=== PATIENT | female | born 1995 | race Two or more races ===

== ENCOUNTER 2016-06-17 23:54 | Emergency (ER) | payer SELFPAY ==
[~2016-06-17] VITALS: Ht 152.4 cm; Wt 68.0 kg
[~2016-06-17 23:54] MED LIST: ATIVAN1 MG ORAL; MACROBID100 MG ORAL; NKM; PHENAZOPYRIDIN200 MG ORAL
[2016-06-18 00:09] VITALS: BP 123/69
[2016-06-18] MEDS ORDERED: LORazepam Inj 2mg/ml 1ml IV ONE (00:30)
--- NOTE | 2016-06-18 00:31 | Emergency Room Report ---
History of Present Illness General Chief Complaint: General Complaint Source: Patient Present Illness HPI This is a 20-year-old female with history of eczema and anxiety. She presents with chief complaint of palpitation for the last few days. On and off. Closter short of breath with it. Denies any fever chills denies any nausea vomiting. A little anxious but not severe. No suicidal thought homicidal thought. Not in any medication. Not Toprol. No family history of PE or DVT. Allergies: Coded Allergies: No Known Allergies (Unverified , 06/17/16) Patient History Past Medical History: see triage record, old chart reviewed Past Surgical History: none Pertinent Family History: none Social History: Denies: smoking Last Menstrual Period: 05/31/16 Now: No : 0 Para: 0 Immunizations: other Reviewed Nursing Documentation: PMH: Agreed, PSxH: Agreed Nursing Documentation-PMH Past Medical History: No Stated History Review of Systems Eye: Denies: blurred vision, eye pain ENT: Denies: ear pain, nose congestion, throat swelling Respiratory: Denies: cough, shortness of breath Cardiovascular: Reports: palpitations, Denies: chest pain Gastrointestinal: Denies: abdominal pain, diarrhea, nausea, vomiting Musculoskeletal: Denies: back pain, joint pain Skin: Denies: rash Neurological: Denies: headache, numbness Endocrine: Denies: increased thirst, increased urine Hematologic/Lymphatic: Denies: easy bruising All Other Systems: negative except mentioned in HPI Physical Exam Vital Signs Date Time Temp Pulse Resp B/P Pulse Ox O2 Delivery O2 Flow Rate FiO2 06/17/16 23:55 98.2 99 16 120/81 100 Room Air vitals normal Sp02 EP Interpretation: reviewed, normal General Appearance: well appearing, no apparent distress, alert Head: normocephalic, atraumatic Eyes: bilateral eye EOMI, bilateral eye PERRL ENT: hearing grossly normal, normal pharynx Neck: full range of motion, supple, no meningismus Respiratory: chest non-tender, lungs clear, normal breath sounds Cardiovascular #1: regular rate, rhythm, no murmur Gastrointestinal: normal bowel sounds, non tender, no mass, no organomegaly, no bruit, non-distended Musculoskeletal: back normal, gait/station normal, normal range of motion Psychiatric: mood/affect normal Skin: warm/dry Medical Decision Making Diagnostic Impression: Primary Impression: Anxiety Additional Impressions: Palpitations UTI (urinary tract infection) Qualified Codes: N30.00 - Acute cystitis without hematuria ER Course Patient presents with palpitations. Most likely anxiety. He felt better after Ativan. She does have a urinary tract infection. We'll go ahead and treat. Notice of ACS, PE, dissection to name a few. Lab Results Impression labs unremarkable EKG Diagnostic Results Rate: normal Rhythm: NSR ST Segments: no acute changes Rhythm Strip Diag. Results EP Interpretation: yes Rate: 98 Rhythm: NSR, no PVC's, no ectopy Last Vital Signs Date Time Temp Pulse Resp B/P Pulse Ox O2 Delivery O2 Flow Rate FiO2 06/18/16 00:09 98.1 97 21 123/69 100 Room Air Status: improved Disposition: HOME, SELF-CARE Condition: Stable Scripts Cephalexin* (KEFLEX*) 500 Mg Capsule 500 MG ORAL TID, #21 CAP 0 Refills Prov: [place] ADAMES M.D. 06/18/16 Buspirone Hcl* (BUSPAR*) 10 Mg Tablet 10 MG ORAL THREE TIMES A DAY, #15 TAB 0 Refills Prov: [place] ADAMES M.D. 06/18/16 Additional Instructions: Followup your Dr. in 7 days. You may need a referral to see a fire sprinkler service technician for Holter monitor. Return if symptom worsen. [place] ADAMES M.D. Jun 18, 2016 00:31
[2016-06-18 01:13] LABS: BASOPHILS % (AUTO) 0.9 % (0.0-2.0); EOSINOPHILS % (AUTO) 3.5 % (0.0-3.0); LYMPHOCYTES % (AUTO) 25.7 % (20.0-45.0); MEAN CORPUSCULAR HEMOGLOBIN 27.4 PG (27.0-31.0); MEAN CORPUSCULAR HGB CONC 33.2 G/DL (32.0-36.0); MEAN CORPUSCULAR VOLUME 83 FL (80-99); MEAN PLATELET VOLUME 6.3 FL (6.5-10.1); MONOCYTES % (AUTO) 9.1 % (1.0-10.0); NEUTROPHILS % (AUTO) 60.7 % (45.0-75.0); PLATELET COUNT 345 K/UL (150-450); RED BLOOD COUNT 4.97 M/UL (4.20-5.40); RED CELL DISTRIBUTION WIDTH 14.3 % (11.6-14.8); WHITE BLOOD COUNT 13.9 K/UL (4.8-10.8)
[2016-06-18 01:14] LABS: APPEARANCE,URINE SLIGHTLY CLOUDY; KETONES,URINE NEGATIVE (NEGATIVE); LEUKOCYTE ESTERASE ,URINE 2+ (NEGATIVE); NITRITE,URINE NEGATIVE (NEGATIVE); PH,URINE 6.5 (4.5-8.0); PROTEIN,URINE NEGATIVE (NEGATIVE); UROBILINOGEN,URINE NORMAL MG/DL (0.0-1.0)
[2016-06-18 01:26] LABS: BACTERIA,URINE MODERATE /HPF; RBC,URINE 0-2 /HPF (0 - 2); SQUAMOUS EPITHELIAL CELL,UR FEW /LPF (NONE/OCC); WBC,URINE 20-30 /HPF (0 - 2)
[2016-06-18 01:32] LABS: ANION GAP 11 (5-15); CALCIUM 9.2 mg/dL (8.6-10.2); CARBON DIOXIDE 27 mEQ/L (20-30); CHLORIDE 101 mEQ/L (98-107); CREATININE 0.6 mg/dL (0.5-0.9); GLOMERULAR FILTRATION RATE > 60 mL/min (>60); HEMOLYSIS 2; SODIUM 139 mEQ/L (135-145)
[2016-06-18] MEDS ORDERED: KEFLEX500 MG ORAL (01:45)
[2016-06-18] MEDS ORDERED: BUSPAR10 MG ORAL (01:45)
[2016-06-18 02:08] VITALS: BP 112/71
--- NOTE | 2016-06-20 08:31 | Cardiology Report ---
APPROVED REPORT EKG Measurement Heart [id number] ID [id number] Sinus rhythm with marked sinus arrhythmia Otherwise normal ECG
== END 2016-06-18 02:15 | disposition home or self-care (01) ==
LOC: EMR 06-18 02:15
DX: F41.9 Anxiety disorder, unspecified (principal); N30.00 Acute cystitis without hematuria
CPT/HCPCS: 36415; 80048; 81001; 81025; 85025; 87086; 87181; 93005; 96374; 96375; 99284; J0696

== ENCOUNTER 2017-07-19 00:31 | Emergency (ER) | payer SELFPAY ==
[~2017-07-19] VITALS: Ht 152.4 cm; Wt 70.3 kg
[~2017-07-19 00:31] MED LIST changes: +BUSPAR10 MG ORAL; +KEFLEX500 MG ORAL
[2017-07-19 01:51] LABS: APPEARANCE,URINE CLEAR; BILIRUBIN, URINE NEGATIVE (NEGATIVE); COLOR,URINE PALE YELLOW; GLUCOSE, URINE (UA) NEGATIVE (NEGATIVE); KETONES,URINE NEGATIVE (NEGATIVE); LEUKOCYTE ESTERASE ,URINE NEGATIVE (NEGATIVE); NITRITE,URINE NEGATIVE (NEGATIVE); PH,URINE 7 (4.5-8.0); PROTEIN,URINE NEGATIVE (NEGATIVE); UROBILINOGEN,URINE NORMAL MG/DL (0.0-1.0)
[2017-07-19 02:30] VITALS: BP 118/75
[2017-07-19] MEDS ORDERED: IBUPROFEN600 MG ORAL (03:13)
[2017-07-19 03:20] VITALS: BP 109/75
--- NOTE | 2017-07-19 04:37 | Emergency Room Report ---
History of Present Illness General Chief Complaint: Chest Pain Source: Patient Present Illness HPI This is a 21-year-old female presented after increased cough and nasal congestion. The patient having intermittent episodes when she had increased chest discomfort. This was described as sharp in nature. It was associated with a nonproductive cough. The patient reported having increased nasal congestion a moderate sore throat. She denied current fever. She denied vomiting or being . Allergies: Coded Allergies: No Known Allergies (Unverified , 06/17/16) Patient History Past Medical History: see triage record Last Menstrual Period: 07/11/17 Now: No : 0 Para: 0 Reviewed Nursing Documentation: PMH: Agreed, PSxH: Agreed Nursing Documentation-PMH Past Medical History: No Stated History Review of Systems All Other Systems: negative except mentioned in HPI Physical Exam Vital Signs Date Time Temp Pulse Resp B/P (MAP) Pulse Ox O2 Delivery O2 Flow Rate FiO2 07/19/17 00:40 97.7 110 16 127/77 97 Room Air Sp02 EP Interpretation: reviewed, normal General Appearance: normal inspection, well appearing, no apparent distress, alert, GCS 15 Head: atraumatic ENT: normal ENT inspection, hearing grossly normal, normal voice Neck: normal inspection, full range of motion, supple, no bony tend Respiratory: normal inspection, lungs clear, normal breath sounds, no respiratory distress, no retraction, no wheezing Cardiovascular #1: regular rate, rhythm, no edema Gastrointestinal: normal inspection, normal bowel sounds, non tender, soft, no guarding, no hernia Genitourinary: no CVA tenderness Musculoskeletal: normal inspection, back normal, normal range of motion Neurologic: normal inspection, alert, responsive, speech normal Psychiatric: normal inspection, judgement/insight normal, mood/affect normal Skin: normal inspection, normal color, no rash Medical Decision Making Diagnostic Impression: Primary Impression: Viral respiratory infection ER Course Patient presented for cough and chest discomfort. Differential diagnosis included but was not limited to bronchitis, pneumonia, pulmonary embolism, pericarditis, asthma, foreign body. Patient has a benign exam and does not appear to require any further imaging or laboratory testing at this time. A urine test was negative. Patient was given ibuprofen with improvement in the pain. The patient's pain appears related to a viral respiratory infection. She does not appear to have any evidence of pneumonia. She has no known risk factor for pulmonary embolism . The patient is advised to follow up with primary care doctor in 1-2 days. Patient is advised to return if any worsening condition or if any changes in status that are concerning. This report is dictated with [employer] train inspector software which may occasionally lead to discrepancies related to use of this software. Labs Test 07/19/17 01:38 Urine Color Pale yellow Urine Appearance Clear Urine pH 7 (4.5-8.0) Urine Specific Buckner 1.015 (1.005-1.035) Urine Protein Negative (NEGATIVE) Urine Glucose (UA) Negative (NEGATIVE) Urine Ketones Negative (NEGATIVE) Urine Occult Blood 1+ (NEGATIVE) Urine Nitrite Negative (NEGATIVE) Urine Bilirubin Negative (NEGATIVE) Urine Urobilinogen Normal MG/DL (0.0-1.0) Urine Leukocyte Esterase Negative (NEGATIVE) Urine RBC 2-4 /HPF (0 - 2) Urine WBC 0 /HPF (0 - 2) Urine Squamous Epithelial Cells Few /LPF (NONE/OCC) Urine Bacteria None /HPF (NONE) Urine HCG, Qualitative Negative Last Vital Signs Date Time Temp Pulse Resp B/P (MAP) Pulse Ox O2 Delivery O2 Flow Rate FiO2 07/19/17 03:20 89 14 109/75 99 Room Air 07/19/17 02:30 97.7 Status: improved Disposition: HOME, SELF-CARE Condition: Stable Scripts Ibuprofen* (MOTRIN*) 600 Mg Tablet 600 MG ORAL Q8H Y for For Pain, #30 TAB 0 Refills Prov: Kar Peace 07/19/17 Patient Instructions: Nonspecific Chest Pain Kar Peace Jul 19, 2017 04:37
--- NOTE | 2017-07-19 14:17 | Diagnostic Imaging Report ---
Indication: Dyspnea Comparison: None A single view chest radiograph was obtained. Findings: Cardiomediastinal appearance is within normal limits for age. Pulmonary vascularity is appropriate. The diaphragmatic contour is smooth and costophrenic angles are sharp. No pleural effusions are identified. The bones are unremarkable. Impression: No acute findings
--- NOTE | 2017-07-21 16:52 | Cardiology Report ---
APPROVED REPORT EKG Measurement Heart [id number] Normal sinus rhythm Normal ECG
== END 2017-07-19 03:26 | disposition home or self-care (01) ==
LOC: EMR 01:01
DX: J98.8 Other specified respiratory disorders (principal); B34.9 Viral infection, unspecified
CPT/HCPCS: 71045; 81003; 81025; 93005; 99283

== ENCOUNTER 2018-09-08 11:19 | Emergency (ER) | payer SELFPAY ==
[~2018-09-08] VITALS: Ht 149.9 cm; Wt 77.1 kg
[~2018-09-08 11:19] MED LIST changes: +BACTRIM DS TAB1 EAC1 ORAL; +IBUPROFEN600 MG ORAL; +PHENAZOPYRIDIN100 MG ORAL
[2018-09-08 11:22] VITALS: BP 123/66
--- NOTE | 2018-09-08 11:48 | NUR ---
ED Nurse Note: PT. AAOX4. AMBULATORY. CAME IN TO ER DUE TO BACK PAIN. PT. WAS RECENTLY SEEN IN ER FOR UTI BUT THE BACK PAIN GOT WORSE. HAS NOT FINISHED THE FULL COARSE OF ATB
[2018-09-08 12:24] LABS: APPEARANCE,URINE CLEAR; BILIRUBIN, URINE NEGATIVE (NEGATIVE); COLOR,URINE PALE YELLOW; GLUCOSE, URINE (UA) NEGATIVE (NEGATIVE); KETONES,URINE NEGATIVE (NEGATIVE); LEUKOCYTE ESTERASE ,URINE NEGATIVE (NEGATIVE); NITRITE,URINE NEGATIVE (NEGATIVE); PH,URINE 6 (4.5-8.0); PROTEIN,URINE NEGATIVE (NEGATIVE); UROBILINOGEN,URINE NORMAL MG/DL (0.0-1.0)
--- NOTE | 2018-09-08 12:36 | Emergency Room Report ---
History of Present Illness General Chief Complaint: Back Pain-No Injury Source: Patient Present Illness HPI This patient states that she was seen one week ago for back pain and dysuria. She was told she had a urinary tract infection. She states she took a course of antibiotics and the dysuria has resolved but she continues to have back pain. She describes the pain in her low back. She states the pain is worse with movement. She states when she is at work it is worse that she currently has to walk around and lift things. She denies weakness. She denies tingling or numbness. She denies trauma. She denies fever or chills. She denies nausea or vomiting. She denies abnormal vaginal discharge. She denies vaginal bleeding. She has no other complaints. Allergies: Coded Allergies: No Known Allergies (Unverified , 06/17/16) Patient History Past Medical History: none, see triage record, other - Fatty liver Social History: Denies: smoking, alcohol use, drug use Last Menstrual Period: 07/31/18 Reviewed Nursing Documentation: PMH: Agreed; PSxH: Agreed Nursing Documentation-PMH Past Medical History: No Stated History Review of Systems All Other Systems: negative except mentioned in HPI Physical Exam Vital Signs Date Time Temp Pulse Resp B/P (MAP) Pulse Ox O2 Delivery O2 Flow Rate FiO2 09/08/18 11:22 97.9 99 19 123/66 97 Room Air Sp02 EP Interpretation: reviewed, normal General Appearance: no apparent distress, alert, GCS 15, non-toxic Head: normocephalic, atraumatic Eyes: bilateral eye normal inspection, bilateral eye PERRL ENT: hearing grossly normal, normal pharynx, no angioedema, normal voice Neck: full range of motion, supple/symm/no masses Respiratory: chest non-tender, lungs clear, normal breath sounds, no respiratory distress, no retraction, no accessory muscle use, speaking full sentences Cardiovascular #1: regular rate, rhythm, no edema Gastrointestinal: normal bowel sounds, non tender, soft, non-distended, no guarding, no rebound Rectal: deferred Musculoskeletal: gait/station normal, normal range of motion, tender - TTP over the paraspinal m of the lumbar spine. Neurologic: alert, oriented x3, responsive, motor strength/tone normal, sensory intact, speech normal Psychiatric: judgement/insight normal, memory normal, mood/affect normal, no suicidal/homicidal ideation Skin: normal color, no rash, warm/dry, well hydrated Medical Decision Making Diagnostic Impression: Primary Impression: Back pain Additional Impressions: Muscle spasm Transaminitis ER Course This patient has a clinical presentation consistent with mechanical back pain. There are no red flags on physical exam. The patient denies any concerning features such as trauma, fevers, night sweats, history of malignancy, pain worse at night, IV drug abuse, urinary/fecal incontinence or retention, focal weakness or change in sensation, or refractory pain. Given these pertinent negatives in the history and physical exam an emergent cause of the back pain such as epidural abscess, metastasis to bone, cauda equina syndrome, and fracture is less likely. I also doubt emergent cardiovascular cause of back pain such as aortic dissection a ruptured abdominal aortic aneurysm given patient with equal pulses in all 4 extremities with no diastolic murmur or pulsatile abdominal mass. I did obtain basic lab work to include CBC, CMP and urinalysis. These were overall noncontributory. The patient does have a transaminitis. This appears to be chronic for this patient. She was told she has fatty liver. However, I educated the patient that she should follow up with her primary care physician for further evaluation for possible underlying hepatitis. The patient indicated understanding and intention to do so. The patient was counseled that, though unlikely, the possibility of an emergent cause of back pain may still be present and that the patient should return immediately if symptoms persist or worsen. The symptoms are reproducible with movement. Patient had a benign evaluation and neurologic examination. No emergency etiology was identified. Laboratory Tests Test 09/08/18 11:44 09/08/18 12:25 Urine Color Pale yellow Urine Appearance Clear Urine pH 6 (4.5-8.0) Urine Specific [place] 1.015 (1.005-1.035) Urine Protein Negative (NEGATIVE) Urine Glucose (UA) Negative (NEGATIVE) Urine Ketones Negative (NEGATIVE) Urine Blood Negative (NEGATIVE) Urine Nitrite Negative (NEGATIVE) Urine Bilirubin Negative (NEGATIVE) Urine Urobilinogen Normal MG/DL (0.0-1.0) Urine Leukocyte Esterase Negative (NEGATIVE) Urine HCG, Qualitative Negative (NEGATIVE) White Blood Count 10.6 K/UL (4.8-10.8) Red Blood Count 5.01 M/UL (4.20-5.40) Hemoglobin 13.2 G/DL (12.0-16.0) Hematocrit 40.8 % (37.0-47.0) Mean Corpuscular Volume 81 FL (80-99) Mean Corpuscular Hemoglobin 26.5 PG (27.0-31.0) L Mean Corpuscular Hemoglobin Concent 32.5 G/DL (32.0-36.0) Red Cell Distribution Width 14.5 % (11.6-14.8) Platelet Count 328 K/UL (150-450) Mean Platelet Volume 6.2 FL (6.5-10.1) L Neutrophils (%) (Auto) 57.3 % (45.0-75.0) Lymphocytes (%) (Auto) 31.4 % (20.0-45.0) Monocytes (%) (Auto) 8.1 % (1.0-10.0) Eosinophils (%) (Auto) 2.4 % (0.0-3.0) Basophils (%) (Auto) 0.8 % (0.0-2.0) Sodium Level 140 MMOL/L (136-145) Potassium Level 3.5 MMOL/L (3.5-5.1) Chloride Level 103 MMOL/L (98-107) Carbon Dioxide Level 25 MMOL/L (21-32) Anion Gap 12 mmol/L (5-15) Blood Urea Nitrogen 8 mg/dL (7-18) Creatinine 0.7 MG/DL (0.55-1.30) Estimate Glomerular Filtration Rate > 60 mL/min (>60) Glucose Level 127 MG/DL (74-106) H Calcium Level 9.0 MG/DL (8.5-10.1) Total Bilirubin 0.2 MG/DL (0.2-1.0) Aspartate Amino Transferase (AST) 95 U/L (15-37) H Alanine Aminotransferase (ALT) 177 U/L (12-78) H Alkaline Phosphatase 114 U/L (46-116) Total Protein 8.5 G/DL (6.4-8.2) H Albumin 3.4 G/DL (3.4-5.0) Globulin 5.1 g/dL Albumin/Globulin Ratio 0.7 (1.0-2.7) L Last Vital Signs Date Time Temp Pulse Resp B/P (MAP) Pulse Ox O2 Delivery O2 Flow Rate FiO2 09/08/18 11:22 97.9 99 19 123/66 97 Room Air Status: improved Disposition: HOME, SELF-CARE Condition: Improved Patient Instructions: Back Pain, Adult Lily Chapin DO Sep 08, 2018 12:36
[2018-09-08 12:44] LABS: BASOPHILS % (AUTO) 0.8 % (0.0-2.0); EOSINOPHILS % (AUTO) 2.4 % (0.0-3.0); HEMATOCRIT 40.8 % (37.0-47.0); HEMOGLOBIN 13.2 G/DL (12.0-16.0); LYMPHOCYTES % (AUTO) 31.4 % (20.0-45.0); MEAN CORPUSCULAR VOLUME 81 FL (80-99); MONOCYTES % (AUTO) 8.1 % (1.0-10.0); NEUTROPHILS % (AUTO) 57.3 % (45.0-75.0); PLATELET COUNT 328 K/UL (150-450); RED BLOOD COUNT 5.01 M/UL (4.20-5.40); RED CELL DISTRIBUTION WIDTH 14.5 % (11.6-14.8); WHITE BLOOD COUNT 10.6 K/UL (4.8-10.8)
[2018-09-08 12:56] LABS: ANION GAP 12 mmol/L (5-15); BLOOD UREA NITROGEN 8 mg/dL (7-18); CARBON DIOXIDE 25 MMOL/L (21-32); CHLORIDE 103 MMOL/L (98-107); CREATININE 0.7 MG/DL (0.55-1.30); POTASSIUM 3.5 MMOL/L (3.5-5.1); SODIUM 140 MMOL/L (136-145)
[2018-09-08 13:01] LABS: ALANINE AMINOTRANSFERASE 177 U/L (12-78); ALBUMIN 3.4 G/DL (3.4-5.0); ALBUMIN/GLOBULIN RATIO 0.7 (1.0-2.7); ALKALINE PHOSPHATASE 114 U/L (46-116); ASPARTATE AMINO TRANSFERASE 95 U/L (15-37); BILIRUBIN,TOTAL 0.2 MG/DL (0.2-1.0)
[2018-09-08] MEDS ORDERED: Ketorolac 60mg Inj IM ONE ×2 (13:30→13:34)
[2018-09-08] MEDS ORDERED: Cyclobenzaprine 10mg Tab ORAL ONE (13:30)
[2018-09-08] MEDS ORDERED: Cyclobenzaprine 10mg Tab ONE (13:35)
[2018-09-08] MEDS ORDERED: IBUPROFEN800 MG ORAL (13:52)
[2018-09-08] MEDS ORDERED: ACETAMINOPHEN-1 EAC1 ORAL (13:52)
[2018-09-08] MEDS ORDERED: CYCLOBENZAPRINE10 MG ORAL (13:52)
[2018-09-08 13:58] VITALS: BP 123/66
--- NOTE | 2018-09-08 14:02 | NUR ---
ER DISCHARGE NOTE: Patient is cleared to be discharged per ERMD, pt is aox4, on room air, with stable vital signs. pt was given dc and prescription instructions, pt was able to verbalize understanding, pt is able to ambulate with steady gait. pt took all belongings.
== END 2018-09-08 14:02 | disposition home or self-care (01) ==
LOC: EMR 12:35
DX: M54.5 Low back pain (principal); M62.838 Other muscle spasm; R74.0 Nonspecific elevation of levels of transaminase and lactic acid dehydrogenase [LDH]
CPT/HCPCS: 36415; 80053; 81003; 81025; 85025; 96372; 99283

== ENCOUNTER 2020-04-19 18:50 | Inpatient (IN) | payer MEDICAID ==
[~2020-04-19] VITALS: Ht 152.4 cm; Wt 77.1 kg
[~2020-04-19 18:50] MED LIST changes: +ACETAMINOPHEN-1 EAC1 ORAL; +CYCLOBENZAPRINE10 MG ORAL; +IBUPROFEN800 MG ORAL
[2020-04-19 19:02] VITALS: BP 123/79
--- NOTE | 2020-04-19 19:16 | Emergency Room Report ---
History of Present Illness General Chief Complaint: Female Urogenital Problems Source: Patient (Arielle Stephenson) Present Illness HPI 24 YO female presents to the ED c/o 5/10 in severity Left flank pain x 5 days. Pt. denies strenuous activities. She denies dysuria, urinary frequency or urgency. Patient denies hematuria. She denies history of renal calculi. Patient reports she has had pain similar to this in the past which usually resolves on its own after day or so. Patient reports she has pain at rest when sitting in the car. Patient denies trauma or fall. She denies rash. Patient reports that she has not had a menstrual cycle in 5 months and is not sure if she is or not. She denies fevers and chills. She denies nausea vomiting. She denies vaginal discharge or pelvic pain. No other aggravating or relieving factors at this time. (Arielle Stephenson) Allergies: Coded Allergies: No Known Allergies (Unverified , 06/17/16) COVID-19 Screening Contact w/high risk pt: No Experienced COVID-19 symptoms?: No COVID-19 Testing performed PRICING ASSOCIATE: No (Arielle Stephenson) Patient History Past Medical History: see triage record Past Surgical History: none Pertinent Family History: none Now: No Reviewed Nursing Documentation: PMH: Agreed; PSxH: Agreed (Arielle Stephenson) Nursing Documentation-PMH Past Medical History: No Stated History (Arielle Stephenson) Review of Systems All Other Systems: negative except mentioned in HPI (Arielle Stephenson) Physical Exam Vital Signs Date Time Temp Pulse Resp B/P (MAP) Pulse Ox O2 Delivery O2 Flow Rate FiO2 04/19/20 18:52 98.2 99 18 123/79 (94) 100 (Arielle Stephenson) Sp02 EP Interpretation: reviewed, normal General Appearance: no apparent distress, alert, GCS 15, non-toxic Head: normocephalic, atraumatic Eyes: bilateral eye normal inspection, bilateral eye PERRL ENT: hearing grossly normal, normal pharynx, no angioedema, normal voice Neck: full range of motion, supple/symm/no masses Respiratory: chest non-tender, lungs clear, normal breath sounds, no respiratory distress, no retraction, no accessory muscle use, speaking full sentences Cardiovascular #1: regular rate, rhythm, no edema Gastrointestinal: normal bowel sounds, non tender, soft, non-distended, no guarding, no rebound Rectal: deferred Genitourinary: normal inspection, CVA tenderness (L) Musculoskeletal: back normal, normal range of motion, gait/station normal, non- tender Neurologic: alert, motor strength/tone normal, oriented x3, sensory intact, responsive, speech normal Psychiatric: judgement/insight normal, memory normal, mood/affect normal, no suicidal/homicidal ideation Skin: normal color (Lily Chapin DO) Medical Decision Making PA Attestation Dr. Chapin Is my supervising Physician whom patient management has been discussed with. (Arielle Stephenson) Diagnostic Impression: Primary Impression: Pyelonephritis Additional Impression: Transaminitis ER Course 24 YO female presents to the ED c/o 10/24 in severity Left flank pain x 5 days. Pt. denies strenuous activities. She denies dysuria, urinary frequency or urgency. Patient denies hematuria. She denies history of renal calculi. Patient reports she has had pain similar to this in the past which usually reso lves on its own after day or so. Patient reports she has pain at rest when sitting in the car. Patient denies trauma or fall. She denies rash. Patient reports that she has not had a menstrual cycle in 5 months and is not sure if she is or not. She denies fevers and chills. She denies nausea vomiting. She denies vaginal discharge or pelvic pain. No other aggravating or relieving factors at this time. Ddx considered but are not limited to Diverticulitis, acute appendicitis, diarrhea,UC, PUD, GE, pancreatitis, gallstone, kidney stone, pyelonephritis, UTI, obstruction. Vital signs: are WNL, pt. is afebrile H&PE are most consistent with [ ] ORDERS: -CBC, CMP, lipase, - UA -Urine Hcg: - CT abdomen and pelvis no contrast: ED INTERVENTIONS: -- DISCHARGE: At this time pt. is stable for d/c to home. Will provide printed patient care instructions, and any necessary prescriptions. Care plan and follow up instructions have been discussed with the patient prior to discharge. Labs Test 04/19/20 18:55 04/20/20 09:55 Urine Color Pale yellow Urine Appearance Clear Urine pH 8 (4.5-8.0) Urine Specific [place] 1.010 (1.005-1.035) Urine Protein 2+ (NEGATIVE) Urine Glucose (UA) Negative (NEGATIVE) Urine Ketones Negative (NEGATIVE) Urine Blood 3+ (NEGATIVE) Urine Nitrite Negative (NEGATIVE) Urine Bilirubin Negative (NEGATIVE) Urine Urobilinogen Normal MG/DL (0.0-1.0) Urine Leukocyte Esterase 3+ (NEGATIVE) Urine RBC 10-15 /HPF (0 - 2) Urine WBC 40-60 /HPF (0 - 2) Urine Squamous Epithelial Cells Moderate /LPF (NONE/OCC) Urine Bacteria Moderate /HPF (NONE) Urine HCG, Qualitative Negative (NEGATIVE) White Blood Count 11.0 K/UL (4.8-10.8) Red Blood Count 4.63 M/UL (4.20-5.40) Hemoglobin 12.4 G/DL (12.0-16.0) Hematocrit 39.9 % (37.0-47.0) Mean Corpuscular Volume 86 FL (80-99) Mean Corpuscular Hemoglobin 26.7 PG (27.0-31.0) Mean Corpuscular Hemoglobin Concent 31.0 G/DL (32.0-36.0) Red Cell Distribution Width 14.9 % (11.6-14.8) Platelet Count 311 K/UL (150-450) Mean Platelet Volume 6.6 FL (6.5-10.1) Neutrophils (%) (Auto) 55.9 % (45.0-75.0) Lymphocytes (%) (Auto) 31.5 % (20.0-45.0) Monocytes (%) (Auto) 10.4 % (1.0-10.0) Eosinophils (%) (Auto) 1.6 % (0.0-3.0) Basophils (%) (Auto) 0.6 % (0.0-2.0) Sodium Level 140 MMOL/L (136-145) Potassium Level 3.8 MMOL/L (3.5-5.1) Chloride Level 106 MMOL/L (98-107) Carbon Dioxide Level 29 MMOL/L (21-32) Anion Gap 5 mmol/L (5-15) Blood Urea Nitrogen 8 mg/dL (7-18) Creatinine 0.8 MG/DL (0.55-1.30) Estimat Glomerular Filtration Rate > 60 mL/min (>60) Glucose Level 100 MG/DL (74-106) Hemoglobin A1c 5.9 % (4.3-6.0) Uric Acid 4.0 MG/DL (2.6-7.2) Calcium Level 8.2 MG/DL (8.5-10.1) Phosphorus Level 2.8 MG/DL (2.5-4.9) Magnesium Level 2.1 MG/DL (1.8-2.4) Total Bilirubin 0.3 MG/DL (0.2-1.0) Gamma Glutamyl Transpeptidase 61 U/L (5-85) Aspartate Amino Transf (AST/SGOT) 48 U/L (15-37) Alanine Aminotransferase (ALT/SGPT) 115 U/L (12-78) Alkaline Phosphatase 115 U/L (46-116) Total Protein 8.0 G/DL (6.4-8.2) Albumin 3.1 G/DL (3.4-5.0) Globulin 4.9 g/dL Albumin/Globulin Ratio 0.6 (1.0-2.7) (Arielle Stephenson) ER Course This patient has pyelonephritis. The patient's primary symptoms were in her left flank. Given the physical exam, I felt that this patient should undergo CT of the abdomen pelvis to rule out an infected obstructed stone. CT of the abdomen pelvis did show a stone in the left ureter showing mild obstruction. Overall, the patient was well-appearing and nontoxic. The patient was given IV Zosyn, Uroxatrol, IV fluids and admitted for further evaluation and treatment. Given the early mild obstruction, this patient is at risk for urosepsis and rapid deterioration. The patient is admitted for further evaluation and treatment and further monitoring of her urolithiasis for concern of full obstruction and deterioration. She is admitted for further evaluation and treatment. Laboratory Tests Test 04/19/20 18:55 04/19/20 19:28 Urine Color Pale yellow Urine Appearance Clear Urine pH 8 (4.5-8.0) Urine Specific [place] 1.010 (1.005-1.035) Urine Protein 2+ (NEGATIVE) H Urine Glucose (UA) Negative (NEGATIVE) Urine Ketones Negative (NEGATIVE) Urine Blood 3+ (NEGATIVE) H Urine Nitrite Negative (NEGATIVE) Urine Bilirubin Negative (NEGATIVE) Urine Urobilinogen Normal MG/DL (0.0-1.0) Urine Leukocyte Esterase 3+ (NEGATIVE) H Urine RBC 10-15 /HPF (0 - 2) H Urine WBC 40-60 /HPF (0 - 2) H Urine Squamous Epithelial Cells Moderate /LPF (NONE/OCC) H Urine Bacteria Moderate /HPF (NONE) H Urine HCG, Qualitative Negative (NEGATIVE) White Blood Count 12.7 K/UL (4.8-10.8) H Red Blood Count 5.24 M/UL (4.20-5.40) Hemoglobin 13.7 G/DL (12.0-16.0) Hematocrit 43.0 % (37.0-47.0) Mean Corpuscular Volume 82 FL (80-99) Mean Corpuscular Hemoglobin 26.2 PG (27.0-31.0) L Mean Corpuscular Hemoglobin Concent 31.9 G/DL (32.0-36.0) L Red Cell Distribution Width 15.5 % (11.6-14.8) H Platelet Count 343 K/UL (150-450) Mean Platelet Volume 6.8 FL (6.5-10.1) Neutrophils (%) (Auto) 64.9 % (45.0-75.0) Lymphocytes (%) (Auto) 24.7 % (20.0-45.0) Monocytes (%) (Auto) 7.7 % (1.0-10.0) Eosinophils (%) (Auto) 1.7 % (0.0-3.0) Basophils (%) (Auto) 1.0 % (0.0-2.0) Sodium Level 138 MMOL/L (136-145) Potassium Level 4.0 MMOL/L (3.5-5.1) Chloride Level 103 MMOL/L (98-107) Carbon Dioxide Level 27 MMOL/L (21-32) Anion Gap 8 mmol/L (5-15) Blood Urea Nitrogen 10 mg/dL (7-18) Creatinine 0.9 MG/DL (0.55-1.30) Estimated Glomerular Filtration Rate > 60 mL/min (>60) Glucose Level 117 MG/DL (74-106) H Calcium Level 8.7 MG/DL (8.5-10.1) Total Bilirubin 0.2 MG/DL (0.2-1.0) Aspartate Amino Transferase (AST) 71 U/L (15-37) H Alanine Aminotransferase (ALT) 146 U/L (12-78) H Alkaline Phosphatase 147 U/L (46-116) H Total Protein 9.3 G/DL (6.4-8.2) H Albumin 3.6 G/DL (3.4-5.0) Globulin 5.7 g/dL Albumin/Globulin Ratio 0.6 (1.0-2.7) L (Lily Chapin [facility]) CT/MRI/US Diagnostic Results CT/MRI/US Diagnostic Results : Imaging Test Ordered: CT Abd Pelvis without contrast Impression " IMPRESSION: 1. 4-5 mm obstructing left ureteral stone, about 2.5 cm from the renal pelvis, causes minimal hydroureter and hydronephrosis. 2. 2.4 cm hypodense lesion (likely a cyst) containing a cluster of calcifications/nonobstructing stones measuring up to 8 mm in upper pole of left kidney. ." --Per official radiology report- Please see report for specific details. (Arielle Stephenson) CT/MRI/US Diagnostic Results : Imaging Test Ordered: CT abd/pelvis Impression 4 to 5 mm obstructing left ureteral stone, about 2.5 cm from the renal pelvis causing minimal hydroureter and hydronephrosis. ([facility] ) Last Vital Signs Date Time Temp Pulse Resp B/P (MAP) Pulse Ox O2 Delivery O2 Flow Rate FiO2 04/19/20 19:02 98.2 90 18 123/79 100 (Arielle Stephenson) Disposition: ADMITTED INPATIENT Condition: Serious Arielle Stephenson Apr 19, 2020 19:16 Lily Chapin Camryn Apr 19, 2020 20:22
[2020-04-19 19:24] LABS: APPEARANCE,URINE CLEAR; BILIRUBIN, URINE NEGATIVE (NEGATIVE); COLOR,URINE PALE YELLOW; GLUCOSE, URINE (UA) NEGATIVE (NEGATIVE); KETONES,URINE NEGATIVE (NEGATIVE); LEUKOCYTE ESTERASE ,URINE 3+ (NEGATIVE); NITRITE,URINE NEGATIVE (NEGATIVE); PH,URINE 8 (4.5-8.0); PROTEIN,URINE 2+ (NEGATIVE); UROBILINOGEN,URINE NORMAL MG/DL (0.0-1.0)
[2020-04-19] MEDS ORDERED: Ketorolac 30mg Inj IV ONE (19:45)
[2020-04-19 19:48] LABS: EOSINOPHILS % (AUTO) 1.7 % (0.0-3.0); HEMOGLOBIN 13.7 G/DL (12.0-16.0); LYMPHOCYTES % (AUTO) 24.7 % (20.0-45.0); MEAN CORPUSCULAR VOLUME 82 FL (80-99); MONOCYTES % (AUTO) 7.7 % (1.0-10.0); NEUTROPHILS % (AUTO) 64.9 % (45.0-75.0); PLATELET COUNT 343 K/UL (150-450); RED BLOOD COUNT 5.24 M/UL (4.20-5.40); RED CELL DISTRIBUTION WIDTH 15.5 % (11.6-14.8); WHITE BLOOD COUNT 12.7 K/UL (4.8-10.8)
[2020-04-19 19:59] LABS: ANION GAP 8 mmol/L (5-15); BLOOD UREA NITROGEN 10 mg/dL (7-18); CALCIUM 8.7 MG/DL (8.5-10.1); CARBON DIOXIDE 27 MMOL/L (21-32); CHLORIDE 103 MMOL/L (98-107); CREATININE 0.9 MG/DL (0.55-1.30); SODIUM 138 MMOL/L (136-145)
[2020-04-19 20:04] LABS: ALANINE AMINOTRANSFERASE 146 U/L (12-78); ALBUMIN 3.6 G/DL (3.4-5.0); ALBUMIN/GLOBULIN RATIO 0.6 (1.0-2.7); ALKALINE PHOSPHATASE 147 U/L (46-116); ASPARTATE AMINO TRANSFERASE 71 U/L (15-37); BILIRUBIN,TOTAL 0.2 MG/DL (0.2-1.0)
--- NOTE | 2020-04-19 20:28 | Diagnostic Imaging Report ---
EXAM: CT Abdomen and Pelvis Without Intravenous Contrast CLINICAL HISTORY: LEFT SIDED FLANK PAIN 24 YO female presents to the ED c/o 5/10 in severity Left flank pain x 5 days. Pt. Denies strenuous activities. She denies dysuria, urinary frequency or urgency. Patient denies hematuria. She denies history of renal calculi. Patient reports she has had pain similar to this in the past which usually resolves on its own after day or so. Patient reports she has pain at rest when sitting in the car. Patient denies trauma or fall. She denies rash. Patient reports that she has not had a menstrual cycle in 5 months and is not sure if she is or not. She denies fevers and chills. She denies nausea vomiting. She denies vaginal discharge or pelvic pain. No other aggravating or relieving factors at this time. TECHNIQUE: Axial computed tomography images of the abdomen and pelvis without intravenous contrast. CTDI is negative 8.70 mGy and DLP is 457.80 mGy-cm. One or more of the following dose reduction techniques were used: automated exposure control, adjustment of the mA and/or kV according to patient size, use of iterative reconstruction technique. Coronal and sagittal reconstructions are performed. COMPARISON: No relevant prior studies available. FINDINGS: Lung bases: Unremarkable. No mass. No consolidation. ABDOMEN: Liver: Unremarkable. Gallbladder and bile ducts: Unremarkable. No calcified stones. No ductal dilation. Pancreas: Unremarkable. No ductal dilation. Spleen: Unremarkable. No splenomegaly. Adrenals: Unremarkable. No mass. Kidneys and ureters: 4-5 mm obstructing left ureteral stone, about 2.5 cm from the renal pelvis, causes minimal hydroureter and hydronephrosis. 2.4 cm hypodense lesion, which cannot be fully characterized due to lack of IV contrast, likely a cyst, containing a cluster of calcifications/nonobstructing stones measuring up to 8 mm in upper pole of left kidney. Stomach and bowel: Unremarkable. No obstruction. No mucosal thickening. PELVIS: The Appendix: Normal appendix. Bladder: Unremarkable. No stones. Reproductive: Unremarkable as visualized. ABDOMEN and PELVIS: Intraperitoneal space: Unremarkable. No free air. No significant fluid collection. Bones/joints: No acute fracture. No dislocation. Soft tissues: Unremarkable. Vasculature: Unremarkable. No abdominal aortic aneurysm. Lymph nodes: Unremarkable. No enlarged lymph nodes. IMPRESSION: 1. 4-5 mm obstructing left ureteral stone, about 2.5 cm from the renal pelvis, causes minimal hydroureter and hydronephrosis. 2. 2.4 cm hypodense lesion (likely a cyst) containing a cluster of calcifications/nonobstructing stones measuring up to 8 mm in upper pole of left kidney.
[2020-04-19] MEDS ORDERED: Piperacillin/Tazobactam 2.25 GM in NS 110 ML IVPB ONE (20:45)
[2020-04-19] MEDS ORDERED: Tamsulosin 0.4mg cap ORAL ONE ×2 (21:59→22:00)
[2020-04-19 23:00] VITALS: BP 123/81
[2020-04-19] MEDS ORDERED: Morphine Sulfate 2mg/ml Inj(IV/IM USE ONLY) IVP PRN (23:00)
[2020-04-19] MEDS: D5 1/2NS 1,000 ML IV SCH (23:37)
[2020-04-20 04:00] VITALS: BP 107/70
[2020-04-20] MEDS: Piperacillin/Tazobactam 3.375 GM in NS 110 ML IVPB SCH ×2 (05:29→13:22)
[2020-04-20] MEDS ORDERED: Ketorolac 30mg Inj IV SCH (07:15)
[2020-04-20] MEDS ORDERED: cefTRIAXone 1 GM in D5W 55 ML IVPB ONE (07:30)
[2020-04-20 08:00] VITALS: BP 114/68
--- NOTE | 2020-04-20 08:00 | Consultation ---
DATE OF CONSULTATION: 04/20/2020 UROLOGY CONSULTATION ATTENDING PHYSICIAN/ ___ PHYSICIAN: Keenan Don DO. CHIEF COMPLAINT/HISTORY OF PRESENT ILLNESS: I was asked by Dr. Don to evaluate this very pleasant 24-year-old female regarding a history of left ureteral stone with hydronephrosis and colic secondary to same. Briefly, the patient presented to the ER with a history of left-sided abdominal flank pain. She denies any history of nausea, vomiting, or gross hematuria. Workup for the same revealed a 4 mm stone in the mid left ureter with some mild hydronephrosis secondary to same. Additionally, the patient had evidence of possible urinary tract infection. She was admitted and given the above I was asked to evaluate the patient. The patient feels significantly better this morning after medication. She is not currently having any pain. PAST MEDICAL HISTORY: Essentially otherwise unremarkable outside of some anxiety. PAST SURGICAL HISTORY: None. MEDICATIONS: Please see the chart for current medications and administration details. Briefly, the patient is receiving Zosyn for antibiotic coverage. ALLERGIES: No known drug allergies. SOCIAL HISTORY: Unremarkable for tobacco, alcohol, or drug use. FAMILY HISTORY: Noncontributory. REVIEW OF SYSTEMS: A 14-system review of systems unremarkable outside was described above. PHYSICAL EXAMINATION: GENERAL: The patient is a young female, awake, alert, and oriented x4, very pleasant, in no obvious distress. HEENT: NC/AT. EOMI. NECK: Supple. Full range of motion. Oropharynx clear. Chest within normal limits. ABDOMEN: Soft, nontender, and nondistended. Somewhat obese. EXTREMITIES: Warm and well perfused. No cyanosis, clubbing, or edema. BACK: No CVA tenderness to percussion at this time. NEUROLOGIC: Nonfocal. LABORATORY DATA: White blood cell count 12.7, hematocrit 43, platelets 343. Sodium 138, potassium 4.0, chloride 103, bicarbonate 27, BUN 10, and creatinine 0.9, calcium 8.7, glucose 117. LFTs notable for AST of 71, ALT of 146, alkaline phosphatase 147. Urinalysis specific gravity 1.010, pH 8.0. Dip test notable for 2+ protein, 3+ occult blood, 3+ leukocyte esterase. Microanalysis with 10 to 15 red and 40 to 60 white blood cells per high-power field, moderate bacteria seen. Urine negative. DIAGNOSTIC IMAGING: CT scan of the abdomen and pelvis reveals a 4 mm stone in the left ureter approximately 2.5 cm from the renal pelvis with minimal hydroureter and hydronephrosis secondary to same. There is a cyst in the upper pole of the left kidney containing a cluster of nonobstructing stones. ASSESSMENT AND PLAN: In summary, the patient is a 24-year-old female with a history of left abdominal pain. She presented here for evaluation of same. Workup reveals a 4 mm stone in the left ureter with minimal hydronephrosis secondary to same and some evidence of urinary tract infection. She was admitted, given fluids and antibiotics and pain medication and feels significantly better this morning. She has no significant CVA tenderness on exam. Laboratory data is notable for elevated LFTs and a mildly elevated white blood cell count. Diagnostic imaging reveals stone described above. I discussed these findings today with the patient at the bedside. I offered her outpatient conservative management with expectant passage of the stone given the small size of the stone if she felt comfortable versus staying for ureteroscopy and laser lithotripsy as warranted by her symptoms. The patient elected the former as she feels significantly better this morning. I think it is reasonable to send her out on oral antibiotics and some Flomax and hyperhydration with expectant management. The patient understands that she will need to follow up with a planned contracted doctor to ensure that the stone does pass or to seek intervention for the stone if it does not. Thank you for allowing me to participate in the care of this nice lady. Please do not hesitate to contact me for any questions that you may further have regarding her care. I will see her with you as needed. Erlin Odonnell M.D. DR: López JOB#: [id number] CC:
[2020-04-20] MEDS ORDERED: Heparin 5000 units/ml inj SUBQ SCH (09:00)
[2020-04-20 10:09] LABS: BASOPHILS % (AUTO) 0.6 % (0.0-2.0); EOSINOPHILS % (AUTO) 1.6 % (0.0-3.0); HEMATOCRIT 39.9 % (37.0-47.0); HEMOGLOBIN 12.4 G/DL (12.0-16.0); LYMPHOCYTES % (AUTO) 31.5 % (20.0-45.0); MEAN CORPUSCULAR VOLUME 86 FL (80-99); MONOCYTES % (AUTO) 10.4 % (1.0-10.0); NEUTROPHILS % (AUTO) 55.9 % (45.0-75.0); PLATELET COUNT 311 K/UL (150-450); RED BLOOD COUNT 4.63 M/UL (4.20-5.40); RED CELL DISTRIBUTION WIDTH 14.9 % (11.6-14.8)
[2020-04-20 10:28] LABS: ANION GAP 5 mmol/L (5-15); BLOOD UREA NITROGEN 8 mg/dL (7-18); CALCIUM 8.2 MG/DL (8.5-10.1); CARBON DIOXIDE 29 MMOL/L (21-32); CHLORIDE 106 MMOL/L (98-107); CREATININE 0.8 MG/DL (0.55-1.30); POTASSIUM 3.8 MMOL/L (3.5-5.1); SODIUM 140 MMOL/L (136-145)
[2020-04-20 10:30] LABS: ALANINE AMINOTRANSFERASE 115 U/L (12-78); ALBUMIN 3.1 G/DL (3.4-5.0); ALBUMIN/GLOBULIN RATIO 0.6 (1.0-2.7); ALKALINE PHOSPHATASE 115 U/L (46-116); ASPARTATE AMINO TRANSFERASE 48 U/L (15-37); BILIRUBIN,TOTAL 0.3 MG/DL (0.2-1.0); GAMMA GLUTAMYL TRANSPEPTIDASE 61 U/L (5-85); PHOSPHORUS 2.8 MG/DL (2.5-4.9)
--- NOTE | 2020-04-20 11:00 | Consultation ---
Consult Note Consult Note I am asked to evaluate the patient at the request of Dr. Keenan Don Patient seen in room 418, examined, interviewed, labs reviewed 24 YO female presents to the ED c/o 5/10 in severity Left flank pain x 5 days. Pt. denies strenuous activities. She denies dysuria, urinary frequency or urgency. Patient denies hematuria. She denies history of renal calculi. Patient reports she has had pain similar to this in the past which usually resolves on its own after day or so. Patient reports she has pain at rest when sitting in the car. Patient denies trauma or fall. She denies rash. Patient reports that she has not had a menstrual cycle in 5 months and is not sure if she is or not. She denies fevers and chills. She denies nausea vomiting. She denies vaginal discharge or pelvic pain. No other aggravating or relieving factors at this time. Allergies: None COVID-19 Screening Contact w/high risk pt: No Experienced COVID-19 symptoms?: No COVID-19 Testing performed RETAIL MERCHANDISER TECHNICIAN: No Vital Signs Date Time Temp Pulse Resp B/P (MAP) Pulse Ox O2 Delivery O2 Flow Rate FiO2 04/19/20 18:52 98.2 99 18 123/79 (94) 100 Assessment/Plan Kidney stone, 4 mm Normal kidney function High liver enzymes Moderately obese UTI Check labs today Antibiotics Per urology and ID Continue per your Hero Pantoja MD Apr 20, 2020 11:00
[2020-04-20 12:00] VITALS: BP 113/71
--- NOTE | 2020-04-20 12:30 | History and Physical Report ---
DATE OF ADMISSION: 04/19/2020 DATE AND TIME SEEN: 04/20/2020 at 9 a.m. CONSULTANTS: 1. Erlin Odonnell MD. 2. Hero Pantoja MD. 3. Ryder Toledo MD. CHIEF COMPLAINT: Back pain, pyelonephritis, left ureteral stone. BRIEF HISTORY: A 24-year-old female, who lives at home, presents with a three-day of left flank pain. No nausea or vomiting. She came into [place] ER, diagnosed with pyelonephritis and left ureteral stone, admitted to medical floor. Currently, calm in bed, 5/10 pain in the back, no complaint. REVIEW OF SYSTEMS: No chest pain. No shortness of breath. No nausea, vomiting, or diarrhea. PAST MEDICAL HISTORY: Nothing. PAST SURGICAL HISTORY: Nothing. ALLERGIES: Denies. MEDICATIONS: Include heparin, ceftriaxone, ketorolac, Zosyn, Zofran, morphine, IV fluids, . SOCIAL HISTORY: No smoking. No alcohol. No intravenous drug abuse. FAMILY HISTORY: Noncontributory. PHYSICAL EXAMINATION: GENERAL: Calm in bed, oriented x3, in no acute distress. VITAL SIGNS: Temperature 97, pulse 82, respirations 18, blood pressure 114/68. CARDIOVASCULAR: No murmur. LUNGS: Distant and clear. ABDOMEN: Bowel sound positive. Nontender. Nondistended. EXTREMITIES: No cyanosis, clubbing, or edema. NEUROLOGIC: The patient moves all extremities, slightly weak. LABORATORY AND DIAGNOSTIC DATA: Labs at this time show white count 12.7, otherwise CBC is normal. BMP shows glucose 117. AST 71, ALT 146, alkaline phosphatase 147. Urinalysis show 3+ leukocyte esterase. ASSESSMENT: 1. Back pain. 2. Pyelonephritis. 3. Left ureteral stone. PLAN: 1. Pain control. 2. Antibiotics per Infectious Disease. 3. IV fluid. 4. Dietary followup. 5. CBC and BMP in the morning. Keenan Don D.O. DR: BRIANA JOB#: [id number] CC:
--- NOTE | 2020-04-20 14:18 | Consultation ---
History of Present Illness General Date patient seen: Apr 20, 2020 Chief Complaint: Female Urogenital Problems Present Illness HPI 24 y/o F with hx of anxiety disorder presented to ED on 04/19/20 with 5 days of L flank pain Denied dysuria, urinary frequency or urgency, hematuria, trauma, fall, rash, n/v, vaginal discharge, pelvic pain. Allergies: Coded Allergies: No Known Allergies (Unverified , 06/17/16) Medication History Scheduled Buspirone Hcl* (Buspar*), 10 MG ORAL THREE TIMES A DAY Cephalexin* (Keflex*), 500 MG ORAL TID Ibuprofen* (Motrin*), 800 MG ORAL THREE TIMES A DAY Lorazepam* (Ativan*), 1 MG ORAL BEDTIME Nitrofurantoin Monohyd/M-Cryst (Nitrofurantoin Posey-Mcr 100 mg), 100 MG ORAL Q12H No Known Medications* (NKM - No Known Medications*), 0 ., (Reported) No Known Medications* (NKM - No Known Medications*), 0 ., (Reported) Phenazopyridine Hcl* (Pyridium*), 200 MG ORAL THREE TIMES A DAY Phenazopyridine Hcl* (Pyridium*), 100 MG ORAL THREE TIMES A DAY Trimethoprim/Sulfamethoxazole 160/800* (Bactrim Ds Tablet*), 1 TAB ORAL Q12H Scheduled PRN Acetaminophen With Codeine (T#3) (Tylenol #3 Tab*), 1 TAB ORAL Q8H PRN for For Pain Cyclobenzaprine Hcl* (Flexeril*), 10 MG ORAL TID PRN for Muscle Spasm Ibuprofen (Motrin), 600 MG ORAL Q8H PRN for For Pain Ibuprofen (Motrin), 600 MG ORAL Q8H PRN for For Pain Patient History Healthcare decision maker Resuscitation status Advanced Directive on File Patient History Narrative Pmhx: as above Shx: Unremarkable for tobacco, alcohol, or drug use. Fhx: non contributory Review of Systems All Other Systems: negative except mentioned in HPI Physical Exam Physical Exam Narrative GENERAL: The patient is a young female, awake, alert, and oriented x4, very pleasant, in no obvious distress. HEENT: NC/AT. EOMI. NECK: Supple. Full range of motion. Oropharynx clear. Chest within normal limits. ABDOMEN: Soft, nontender, and nondistended. Somewhat obese. EXTREMITIES: Warm and well perfused. No cyanosis, clubbing, or edema. BACK: No CVA tenderness to percussion at this time. NEUROLOGIC: Nonfocal. Last 24 Hour Vital Signs Date Time Temp Pulse Resp B/P (MAP) Pulse Ox O2 Delivery O2 Flow Rate FiO2 04/20/20 12:00 97.2 77 18 113/71 (85) 99 04/20/20 09:15 97.2 04/20/20 09:00 Room Air 04/20/20 08:00 97.2 82 18 114/68 (83) 96 04/20/20 04:00 97.9 80 18 107/70 (82) 99 04/20/20 01:30 Room Air 04/19/20 23:00 98.3 91 18 123/81 (95) 98 04/19/20 22:05 98.2 90 21 127/81 99 Room Air 04/19/20 20:07 98.2 04/19/20 19:02 98.2 90 18 123/79 100 04/19/20 18:52 98.2 99 18 123/79 (94) 100 Intake and Output 04/19/20 04/20/20 19:00 07:00 Intake Total 60 ml Balance 60 ml Intake IV Total 60 ml # Voids 1 Laboratory Tests Test 04/19/20 18:55 04/19/20 19:28 04/20/20 09:55 Urine Color Pale yellow Urine Appearance Clear Urine pH 8 (4.5-8.0) Urine Specific [place] 1.010 (1.005-1.035) Urine Protein 2+ (NEGATIVE) H Urine Glucose (UA) Negative (NEGATIVE) Urine Ketones Negative (NEGATIVE) Urine Blood 3+ (NEGATIVE) H Urine Nitrite Negative (NEGATIVE) Urine Bilirubin Negative (NEGATIVE) Urine Urobilinogen Normal MG/DL (0.0-1.0) Urine Leukocyte Esterase 3+ (NEGATIVE) H Urine RBC 10-15 /HPF (0 - 2) H Urine WBC 40-60 /HPF (0 - 2) H Urine Squamous Epithelial Cells Moderate /LPF (NONE/OCC) H Urine Bacteria Moderate /HPF (NONE) H Urine HCG, Qualitative Negative (NEGATIVE) White Blood Count 12.7 K/UL (4.8-10.8) H 11.0 K/UL (4.8-10.8) H Red Blood Count 5.24 M/UL (4.20-5.40) 4.63 M/UL (4.20-5.40) Hemoglobin 13.7 G/DL (12.0-16.0) 12.4 G/DL (12.0-16.0) Hematocrit 43.0 % (37.0-47.0) 39.9 % (37.0-47.0) Mean Corpuscular Volume 82 FL (80-99) 86 FL (80-99) Mean Corpuscular Hemoglobin 26.2 PG (27.0-31.0) L 26.7 PG (27.0-31.0) L Mean Corpuscular Hemoglobin Concent 31.9 G/DL (32.0-36.0) L 31.0 G/DL (32.0-36.0) L Red Cell Distribution Width 15.5 % (11.6-14.8) H 14.9 % (11.6-14.8) H Platelet Count 343 K/UL (150-450) 311 K/UL (150-450) Mean Platelet Volume 6.8 FL (6.5-10.1) 6.6 FL (6.5-10.1) Neutrophils (%) (Auto) 64.9 % (45.0-75.0) 55.9 % (45.0-75.0) Lymphocytes (%) (Auto) 24.7 % (20.0-45.0) 31.5 % (20.0-45.0) Monocytes (%) (Auto) 7.7 % (1.0-10.0) 10.4 % (1.0-10.0) H Eosinophils (%) (Auto) 1.7 % (0.0-3.0) 1.6 % (0.0-3.0) Basophils (%) (Auto) 1.0 % (0.0-2.0) 0.6 % (0.0-2.0) Sodium Level 138 MMOL/L (136-145) 140 MMOL/L (136-145) Potassium Level 4.0 MMOL/L (3.5-5.1) 3.8 MMOL/L (3.5-5.1) Chloride Level 103 MMOL/L (98-107) 106 MMOL/L (98-107) Carbon Dioxide Level 27 MMOL/L (21-32) 29 MMOL/L (21-32) Anion Gap 8 mmol/L (5-15) 5 mmol/L (5-15) Blood Urea Nitrogen 10 mg/dL (7-18) 8 mg/dL (7-18) Creatinine 0.9 MG/DL (0.55-1.30) 0.8 MG/DL (0.55-1.30) Estimat Glomerular Filtration Rate > 60 mL/min (>60) > 60 mL/min (>60) Glucose Level 117 MG/DL (74-106) H 100 MG/DL (74-106) Calcium Level 8.7 MG/DL (8.5-10.1) 8.2 MG/DL (8.5-10.1) L Total Bilirubin 0.2 MG/DL (0.2-1.0) 0.3 MG/DL (0.2-1.0) Aspartate Amino Transf (AST/SGOT) 71 U/L (15-37) H 48 U/L (15-37) H Alanine Aminotransferase (ALT/SGPT) 146 U/L (12-78) H 115 U/L (12-78) H Alkaline Phosphatase 147 U/L (46-116) H 115 U/L (46-116) Total Protein 9.3 G/DL (6.4-8.2) H 8.0 G/DL (6.4-8.2) Albumin 3.6 G/DL (3.4-5.0) 3.1 G/DL (3.4-5.0) L Globulin 5.7 g/dL 4.9 g/dL Albumin/Globulin Ratio 0.6 (1.0-2.7) L 0.6 (1.0-2.7) L Hemoglobin A1c 5.9 % (4.3-6.0) Uric Acid 4.0 MG/DL (2.6-7.2) Phosphorus Level 2.8 MG/DL (2.5-4.9) Magnesium Level 2.1 MG/DL (1.8-2.4) Gamma Glutamyl Transpeptidase 61 U/L (5-85) Height (Feet): 5 Height (Inches): 0.00 Weight (Pounds): 170 Medications Current Medications Medications (Trade) Dose Ordered Sig/Gabbi Route PRN Reason Start Time Stop Time Status Last Admin Dose Admin Dextrose/Sodium Chloride 1,000 ml @ 60 mls/hr [id number] IV 04/19/20 23:00 05/19/20 22:59 04/19/20 23:37 Heparin Sodium (Porcine) (Heparin 5000 units/ml) 5,000 units EVERY 12 HOURS SUBQ 04/20/20 09:00 06/04/20 08:59 04/20/20 08:48 Morphine Sulfate (Morphine Sulfate) 2 mg Q4H PRN IVP For Pain 04/19/20 23:00 04/26/20 22:59 Ondansetron HCl (Zofran) 4 mg Q4HR PRN IVP Nausea & Vomiting 04/19/20 23:00 05/19/20 22:59 Piperacillin Sod/ Tazobactam Sod 3.375 gm/Sodium Chloride 110 ml @ 27.5 mls/hr EVERY 8 HOURS IVPB 04/20/20 06:00 04/25/20 05:59 04/20/20 13:22 Assessment/Plan Assessment/Plan: Abx: Ceftriaxone x 04/20 Zosyn 04/19 Assessment: UTI Obstructive L ureteral stone w/hydropnehrosis -CT abd/p: 4-5 mm obstructing left ureteral stone, about 2.5 cm from the renal pelvis, causes minimal hydroureter and hydronephrosis. 2.4 cm hypodense lesion (likely a cyst) containing a cluster of calcifications/nonobstructing stones measuring up to 8 mm in upper pole of left kidney. -u/a wbc 40-60, nit neg, leuk +3 Afebrile Mild leukocytosis, improving ANxiety disorder Plan: -on Zosyn #2 -ok to discharge on PO Keflex 500mg tid for 6 more days -f/u cx -Monitor CBC/CMP, temperatures -Uro f/u Thank you for consulting [facility]. Will continue to follow along with you. Discussed with Kayleigh Mei M.D. Apr 20, 2020 14:18
[2020-04-20] MEDS: D5 1/2NS 1,000 ML IV SCH (15:40)
[2020-04-20 16:00] VITALS: BP 103/68
--- NOTE | 2020-04-21 17:07 | Discharge Summary ---
Discharge Summary Discharge Summary _ DATE OF ADMISSION: 04/19/2020 DATE OF DISCHARGE: 04/20/2020 DISCHARGED BY: Dr. Don REASON FOR ADMISSION: 24 years old female with no significant past medical history , presented to emergency department complaining of severe left flank pain for 5 days. Patient denied strenuous activity. She denied dysuria, urinary frequency or urgency. She denied hematuria. She denied history of renal calculi. Patient reported similar pain in the past , which usually resolves in a day or so. Patient reported that she had pain at rest , while sitting in the car. She denied trauma or fall . No nausea or vomiting . No vaginal discharge or pelvic pain. Upon evaluation vital signs were stable. Laboratory work-up revealed leukocytosis WBC 12.7 , stable hemoglobin , and hematocrit. Stable electrolytes AST 71 , ALT 146. Urinalysis revealed +2 protein , +3 leukocyte esterase ,pyuria and moderate bacteria . Urine test was negative. CT scan of the abdomen pelvis revealed 4-5 mm obstructing left ureteral stone about 2 cm from the renal pelvis , causing minimal hydroureter and hydronephrosis. 2.4 cm hypodense lesion, likely a cyst ,containing a cluster of calcification/nonobstructing stones measuring up to 8 mm in upper pole of left kidney. In the emergency department patient started on aggressive IV hydration , received empiric, antibiotic, analgesics, Flomax, Uroxatrol, and admitted for further management. CONSULTANTS: ID specialist Dr. Park plaster mold maker Dr. Pantoja urologist Dr. Odonnell [facility] COURSE: Patient admitted to medical surgical floor. Patient was generously hydrated. Pain management was addressed. Urologist seen and evaluated patient . Patient had obstructing stone in the left ureter and some evidence of urinary tract infection. Empiric antibiotic continued. Urology discussed findings with the patient , giving her 2 options: outpatient conservative management with expectant passage of the stone given the small size of the stone if she felt comfortable versus staying in the hospital for ureteroscopy and laser lithotripsy as warranted by her symptoms. Patient elected conservative management , stating that she felt significantly better in the morning. Urologist stated that it was reasonable to send her home on oral antibiotic along with Flomax with hyperhydration and expectant management. Patient understood that she will need to follow-up with her doctor as per insurance to make sure that the stone passed or to seek intervention for the stone if it will not pass. Antibiotic provided as per ID specialist recommendation . Patient was on IV Zosyn while in the hospital and discharged on oral Keflex for additional 6 days. At the time of this dictation urine culture revealed growth of E. coli. Leukocytosis trending down . Patient remained afebrile. Renal parameters and electrolytes remained stable. LFT trending down : AST from 71 down to 48, ALT from 146 down to 115. Pain was controlled. Patient was able to tolerate diet. Patient was stable for discharge home , understanding her options. Due to rapid and unexpected improvement in patient condition , patient was discharged in 1 day. FINAL DIAGNOSES: UTI Obstructive left ureteral stone with hydronephrosis Mild leukocytosis- improving Transaminitis Obesity DISCHARGE MEDICATIONS: See Medication Reconciliation list. DISCHARGE INSTRUCTIONS: Patient was discharged home. Follow-up with a primary care provider in 1 week. I have been assigned to dictate discharge summary for this account. I was not involved in the patient's management. Sharonda Goff NP Apr 21, 2020 17:07
== END 2020-04-20 19:05 | disposition home or self-care (01) | DRG 463 ==
LOC: EMR 19:12 → 4E 21:25 → EDBEDREQ 21:47
DX: N39.0 Urinary tract infection, site not specified (principal); N13.2 Hydronephrosis with renal and ureteral calculous obstruction; R74.01 Elevation of levels of liver transaminase levels; E66.9 Obesity, unspecified; F41.9 Anxiety disorder, unspecified; Z68.33 Body mass index [BMI] 33.0-33.9, adult
CPT/HCPCS: 36415; 74176; 80053; 81003; 81025; 82977; 83036; 83735; 84100; 84550; 85025; 87040; 87086; 87181; 96365; 96375; 99285; J7030

== ENCOUNTER 2020-08-09 18:09 | Emergency (ER) | payer SELFPAY ==
[~2020-08-09] VITALS: Ht 154.9 cm; Wt 72.6 kg
[2020-08-09] MEDS ORDERED: Ketorolac 30mg Inj IV ONE (19:15)
--- NOTE | 2020-08-09 19:17 | Emergency Room Report ---
History of Present Illness General Chief Complaint: Abdominal Pain Source: Patient Present Illness HPI Patient is a 24-year-old female denies any significant past medical history who presents to the ER complaining of flank pain. Patient states that she has had 2 days of intermittent left-sided flank pain and upper abdominal pain with associated chills. She denies any fever. She complains of nausea denies any vomiting. She denies any dysuria or hematuria. LMP was July 06. She denies any diarrhea. She denies any chest pain or shortness of breath. She states that she took Motrin earlier today for pain control. Allergies: Coded Allergies: No Known Allergies (Unverified , 06/17/16) COVID-19 Screening Contact w/high risk pt: No Experienced COVID-19 symptoms?: No COVID-19 Testing performed SURVEILLANCE MANAGER: No COVID-19 Screening: Positive COVID-19 COVID-19 Testing Source: positive on Jun 2020 and negative in Jul Patient History Last Menstrual Period: Jul 06 2020 Now: No Reviewed Nursing Documentation: PMH: Agreed; PSxH: Agreed Nursing Documentation-PMH Past Medical History: No Stated History Review of Systems All Other Systems: negative except mentioned in HPI Physical Exam Vital Signs Date Time Temp Pulse Resp B/P (MAP) Pulse Ox O2 Delivery O2 Flow Rate FiO2 08/09/20 18:13 97.7 82 18 107/70 (82) 93 Room Air Sp02 EP Interpretation: reviewed, normal General Appearance: no apparent distress, alert, GCS 15, non-toxic Head: normocephalic, atraumatic Eyes: bilateral eye normal inspection, bilateral eye PERRL ENT: hearing grossly normal, normal pharynx, no angioedema, normal voice Neck: full range of motion, supple/symm/no masses Respiratory: chest non-tender, lungs clear, normal breath sounds, speaking full sentences Cardiovascular #1: regular rate, rhythm, no edema Gastrointestinal: no guarding, no rebound, other - Left upper quadrant tenderness, overweight Rectal: deferred Genitourinary: CVA tenderness (L) Musculoskeletal: normal range of motion Neurologic: fruit trimmer III-XII nml as tested, oriented x3 Psychiatric: no suicidal/homicidal ideation Skin: no rash Lymphatic: no adenopathy Medical Decision Making Diagnostic Impression: Primary Impression: Pyelonephritis Additional Impression: Hypokalemia ER Course Patient's labs demonstrate hypokalemia. Patient given oral potassium chloride. Patient's with pyelonephritis. Patient started on Levaquin and will be discharged home on Cipro twice daily. Patient is nontoxic and tolerating p.o. After discussing risks and benefits of further diagnostics, treatment plans, as well as indications for and risks of admission, the patient is agreeable to being discharged home. I have explained that their evaluation and treatment in the emergency department today is an important step towards them achieving better health but that their evaluation today is not intended to replace further evaluation and treatment by a physician in their local clinic. I have explained that while the current findings suggest no immediate life threatening emergency they will require further evaluation and treatment by a physician of their choice in their area. They understand that it will be necessary for them to review the final reports of their ED visit with their clinic physician. We have reviewed indications for return to the Emergency Department. I have explained that additional time may need to pass and/or additional testing as an outpatient may be necessary before a definitive diagnosis can be made. They tell me they are willing to follow up as instructed within the timeframe I recommend. They appear to understand what we discussed. Additionally they understand that if they are unable to be seen by an outpatient physician they are welcome, and in fact should, return to the Emergency Department for a repeat evaluation. The patient is stable at time of discharge. Laboratory Tests Test 08/09/20 19:05 08/09/20 19:25 Urine Color Pale yellow Urine Appearance Clear Urine pH 6 (4.5-8.0) Urine Specific [place] 1.010 (1.005-1.035) Urine Protein 1+ (NEGATIVE) H Urine Glucose (UA) Negative (NEGATIVE) Urine Ketones 1+ (NEGATIVE) H Urine Blood 3+ (NEGATIVE) H Urine Nitrite Negative (NEGATIVE) Urine Bilirubin Negative (NEGATIVE) Urine Urobilinogen Normal MG/DL (0.0-1.0) Urine Leukocyte Esterase 2+ (NEGATIVE) H Urine RBC 0-2 /HPF (0 - 2) Urine WBC 2-4 /HPF (0 - 2) Urine Squamous Epithelial Cells Occasional /LPF Urine Bacteria Few /HPF (NONE) Urine HCG, Qualitative Negative (NEGATIVE) Urine Opiates Screen Negative (NEGATIVE) Urine Barbiturates Screen Negative (NEGATIVE) Phencyclidine (PCP) Screen Negative (NEGATIVE) Urine Amphetamines Screen Negative (NEGATIVE) Urine Benzodiazepines Screen Negative (NEGATIVE) Urine Cocaine Screen Negative (NEGATIVE) Urine Marijuana (THC) Screen Negative (NEGATIVE) White Blood Count 9.3 K/UL (4.8-10.8) Red Blood Count 4.86 M/UL (4.20-5.40) Hemoglobin 12.6 G/DL (12.0-16.0) Hematocrit 39.5 % (37.0-47.0) Mean Corpuscular Volume 81 FL (80-99) Mean Corpuscular Hemoglobin 25.9 PG (27.0-31.0) L Mean Corpuscular Hemoglobin Concent 31.9 G/DL (32.0-36.0) L Red Cell Distribution Width 15.3 % (11.6-14.8) H Platelet Count 293 K/UL (150-450) Mean Platelet Volume 6.9 FL (6.5-10.1) Neutrophils (%) (Auto) 65.5 % (45.0-75.0) Lymphocytes (%) (Auto) 25.3 % (20.0-45.0) Monocytes (%) (Auto) 7.8 % (1.0-10.0) Eosinophils (%) (Auto) 0.5 % (0.0-3.0) Basophils (%) (Auto) 0.9 % (0.0-2.0) Sodium Level 137 MMOL/L (136-145) Potassium Level 3.0 MMOL/L (3.5-5.1) L Chloride Level 99 MMOL/L (98-107) Carbon Dioxide Level 28 MMOL/L (21-32) Anion Gap 10 mmol/L (5-15) Blood Urea Nitrogen 9 mg/dL (7-18) Creatinine 0.9 MG/DL (0.55-1.30) Estimated Glomerular Filtration Rate > 60 mL/min (>60) Glucose Level 99 MG/DL (74-106) Calcium Level 8.9 MG/DL (8.5-10.1) Magnesium Level 2.6 MG/DL (1.8-2.4) H Total Bilirubin 0.5 MG/DL (0.2-1.0) Aspartate Amino Transferase (AST) 43 U/L (15-37) H Alanine Aminotransferase (ALT) 62 U/L (12-78) Alkaline Phosphatase 110 U/L (46-116) Total Protein 9.5 G/DL (6.4-8.2) H Albumin 3.3 G/DL (3.4-5.0) L Globulin 6.2 g/dL Albumin/Globulin Ratio 0.5 (1.0-2.7) L Lipase 125 U/L (73-393) Last Vital Signs Date Time Temp Pulse Resp B/P (MAP) Pulse Ox O2 Delivery O2 Flow Rate FiO2 08/09/20 18:13 97.7 82 18 107/70 (82) 93 Room Air Disposition: HOME, SELF-CARE Condition: Stable Scripts Ciprofloxacin* (CIPRO*) 500 Mg Tablet 500 MG PO BID, #20 TAB Prov: Terra Morejon M.D. 08/09/20 Referrals: NOT CHOSEN IPA/,REFERRING (PCP) Additional Instructions: The patient was provided with discharge instructions, notified to follow-up with a primary care doctor and or specialist in the next 24-48 hours, and to return to the ED if they have worsening of their symptoms. Please note that this report is being documented using [employer] technology. This can lead to erroneous entry secondary to incorrect interpretation by the dictating instrument. Terra Morejon M.D. Aug 09, 2020 19:17
[2020-08-09 19:22] VITALS: BP 107/70
--- NOTE | 2020-08-09 19:22 | NUR ---
ED Nurse Note: Pt c/o left flank pain, denies nausea and vomiting. IV started, blood and urine sent to lab.
[2020-08-09 19:24] LABS: APPEARANCE,URINE CLEAR; BILIRUBIN, URINE NEGATIVE (NEGATIVE); COLOR,URINE PALE YELLOW; GLUCOSE, URINE (UA) NEGATIVE (NEGATIVE); KETONES,URINE 1+ (NEGATIVE); LEUKOCYTE ESTERASE ,URINE 2+ (NEGATIVE); NITRITE,URINE NEGATIVE (NEGATIVE); PH,URINE 6 (4.5-8.0); PROTEIN,URINE 1+ (NEGATIVE); UROBILINOGEN,URINE NORMAL MG/DL (0.0-1.0)
--- NOTE | 2020-08-09 19:28 | NUR ---
Amita Baugh RN witnessed toradol waste of 15mg.
[2020-08-09 19:34] LABS: BASOPHILS % (AUTO) 0.9 % (0.0-2.0); EOSINOPHILS % (AUTO) 0.5 % (0.0-3.0); HEMATOCRIT 39.5 % (37.0-47.0); HEMOGLOBIN 12.6 G/DL (12.0-16.0); LYMPHOCYTES % (AUTO) 25.3 % (20.0-45.0); MEAN CORPUSCULAR VOLUME 81 FL (80-99); MONOCYTES % (AUTO) 7.8 % (1.0-10.0); NEUTROPHILS % (AUTO) 65.5 % (45.0-75.0); PLATELET COUNT 293 K/UL (150-450); RED BLOOD COUNT 4.86 M/UL (4.20-5.40); RED CELL DISTRIBUTION WIDTH 15.3 % (11.6-14.8); WHITE BLOOD COUNT 9.3 K/UL (4.8-10.8)
[2020-08-09 19:42] LABS: ANION GAP 10 mmol/L (5-15); BLOOD UREA NITROGEN 9 mg/dL (7-18); CALCIUM 8.9 MG/DL (8.5-10.1); CARBON DIOXIDE 28 MMOL/L (21-32); CHLORIDE 99 MMOL/L (98-107); CREATININE 0.9 MG/DL (0.55-1.30); SODIUM 137 MMOL/L (136-145)
--- NOTE | 2020-08-09 19:51 | NUR ---
ED Nurse Note: Moved pt to bed 3. Pt has no new needs identified at this time.
[2020-08-09 19:57] LABS: ALANINE AMINOTRANSFERASE 62 U/L (12-78); ALBUMIN 3.3 G/DL (3.4-5.0); ALBUMIN/GLOBULIN RATIO 0.5 (1.0-2.7); ALKALINE PHOSPHATASE 110 U/L (46-116); ASPARTATE AMINO TRANSFERASE 43 U/L (15-37); BILIRUBIN,TOTAL 0.5 MG/DL (0.2-1.0)
--- NOTE | 2020-08-09 20:39 | NUR ---
ED Nurse Note: Provided pt with water, pt has no new needs at this time.
--- NOTE | 2020-08-09 21:00 | NUR ---
ED Nurse Note: Pt placed on pulse ox and BP monitor, no new needs identified at this time.
[2020-08-09] MEDS ORDERED: CIPRO500 MG PO (21:12)
[2020-08-09 21:51] VITALS: BP 99/60
[2020-08-09 22:47] VITALS: BP 106/85
--- NOTE | 2020-08-09 22:49 | NUR ---
ER DISCHARGE NOTE: Patient is cleared to be discharged per ERMD, pt is aaox4, on room air, with stable vital signs. pt was given d/c and prescription instructions, pt was able to verbalize understanding, pt id band and iv site removed without complications. pt is able to ambulate with steady gait. pt took all belongings.
--- NOTE | 2020-08-10 07:25 | Diagnostic Imaging Report ---
EXAM: CT Abdomen and Pelvis Without Intravenous Contrast CLINICAL HISTORY: abd pain Patient is a 24-year-old female denies any significant past medical history who presents to the ER complaining of flank pain. Patient states that she has had 2 days of intermittent left-sided flank pain and upper abdominal pain with associated chills. She denies any fever. She complains of nausea TECHNIQUE: Axial computed tomography images of the abdomen and pelvis without intravenous contrast. CTDI is 7.5 mGy and DLP is 388.3 mGy-cm. One or more of the following dose reduction techniques were used: automated exposure control, adjustment of the mA and/or kV according to patient size, use of iterative reconstruction technique. COMPARISON: 04/19/2020. FINDINGS: Lung bases: Unremarkable. No mass. No consolidation. Pleural space: No pleural effusions are noted. Heart: Heart is normal in size. ABDOMEN: Liver: The liver and the spleen are normal in contour. Gallbladder and bile ducts: Gallbladder is mildly distended but is otherwise unremarkable. No calcified stones. No ductal dilation. Pancreas: See below. Spleen: See above. Adrenals: The adrenal glands, the head, body, tail of the pancreas are unremarkable. Kidneys and ureters: There is stranding about the left perinephric space without hydronephrosis. A 0.6 cm nonobstructing Is midpole region of the left kidney. Stomach and bowel: Mild quantity of ingested material in the stomach. Moderate quantity of stool throughout the colon. Moderate quantity of stool throughout the colon without bowel obstruction. No mucosal thickening. PELVIS: Appendix: Appendix is seen on coronal image 55 and is unremarkable. Bladder: Bladder is underdistended. No stones. Reproductive: Unremarkable as visualized. ABDOMEN and PELVIS: Intraperitoneal space: Unremarkable. No free air. No significant fluid collection. Bones/joints: No spondylolysis. No acute fracture. No dislocation. Soft tissues: Unremarkable. Vasculature: Unremarkable. No abdominal aortic aneurysm. Lymph nodes: Unremarkable. No enlarged lymph nodes. IMPRESSION: 1. There is stranding about the left perinephric spaces without hydronephrosis compatible with left pyelonephritis. 2. Nonobstructing left renal calculus. 3. This finding is best seen on axial image 52, series 4.
== END 2020-08-09 22:59 | disposition home or self-care (01) ==
LOC: EMR 19:11
DX: N12 Tubulo-interstitial nephritis, not specified as acute or chronic (principal); N20.0 Calculus of kidney; E87.6 Hypokalemia; E66.3 Overweight; Z68.30 Body mass index [BMI] 30.0-30.9, adult
CPT/HCPCS: 36415; 74176; 80053; 80307; 81003; 81025; 83690; 83735; 85025; 96361; 96365; 96375; 99284; J1885; J1956; J2405; J7030; J8499